=== PATIENT | female | born 1975 ===

== ENCOUNTER 2018-06-13 11:08 | Emergency (ER) | payer OTHER ==
[2018-06-13 11:30] VITALS: RESP 18; O2SAT 100
--- NOTE | 2018-06-13 12:50 | C.PDOC ---
History Of Present Illness 43 year old female presents to ED with complaining of pain to right anterior thigh for the past 2-3 weeks. states patient feels pain when she is standing, sitting, or laying down. states she feels blood is not circulating to that area. Denies fever, chills, taking medication for the pain, weakness, numbness. Time Seen by Provider: 06/13/18 11:31 Chief Complaint (Nursing): Lower Extremity Problem/Injury History Per: Family () History/Exam Limitations: no limitations Onset/Duration Of Symptoms: Days Current Symptoms Are (Timing): Still Present Past Medical History Reviewed: Historical Data, Nursing Documentation, Vital Signs Vital Signs: Last Vital Signs Temp 98.2 F 06/13/18 11:28 Pulse 73 06/13/18 11:28 Resp 18 06/13/18 11:28 BP 106/76 06/13/18 11:28 Pulse Ox 100 06/13/18 11:28 Surgical History: No Surg Hx Family History: States: No Known Family Hx - Social History Hx Tobacco Use: No Hx Alcohol Use: No Hx Substance Use: No - Immunization History Hx Influenza Vaccination: Yes Hx Pneumococcal Vaccination: No Review Of Systems Except As Marked, All Systems Reviewed And Found Negative. Constitutional: Negative for: Fever, Chills Musculoskeletal: Positive for: Leg Pain (Right anterior thigh) Neurological: Negative for: Weakness, Numbness Physical Exam - Physical Exam Appears: Non-toxic, No Acute Distress Skin: Warm, Dry, No Rash Head: Atraumatic, Normacephalic Eye(s): bilateral: PERRL, EOMI Oral Mucosa: Moist Neck: Normal ROM, Supple Chest: Symmetrical, No Deformity Cardiovascular: Rhythm Regular, No Murmur Respiratory: Normal Breath Sounds, No Rales, No Rhonchi, No Wheezing Back: No Vertebral Tenderness, No Paraspinal Tenderness Extremity: Normal ROM, No Tenderness, No Deformity, No Swelling Pulses: Left Dorsalis Pedis: Normal, Right Dorsalis Pedis: Normal Neurological/Psych: Oriented x3 ED Course And Treatment O2 Sat by Pulse Oximetry: 100 (RA) Pulse Ox Interpretation: Normal - Other Rad X-ray right femur X-Ray: Interpreted by Me, Viewed By Me Interpretation: Normal Medical Decision Making Medical Decision Making: Plan: * Ibuprofen * X-ray right femur * Venous duplex scan Venous duplex is negative for DVT and femur xray is negative for fracture and NAD. On re-exam, the patient reports improvement of symptoms. Ambulatory in the ED with steady gait. Follow up with the medical doctor within 1-2 days without fail. Return if worsened. Disposition - Disposition Referrals: Jia Henry MD [Non-Staff] - Disposition: HOME/ ROUTINE Disposition Time: 13:06 Condition: STABLE Additional Instructions: Follow up with the medical doctor within 1-2 days without fail. Return if worsened. Prescriptions: Naproxen [Naprosyn] 500 mg PO BID #20 tab Instructions: Muscle Spasms (DC) Forms: [employer] (Maori) - Clinical Impression Clinical Impression: Muscle cramp, Leg pain - PA / LOOM CLEANER / Resident Statement MD/DO has reviewed & agrees with the documentation as recorded. - Scribe Statement The provider has reviewed the documentation as recorded by the Scribe Jaret Gayleed All medical record entries made by the Scribbhavana were at my direction and personally dictated by me. I have reviewed the chart and agree that the record accurately reflects my personal performance of the history, physical exam, medical decision making, and the department course for this patient. I have also personally directed, reviewed, and agree with the discharge instructions and disposition.
[2018-06-13 13:00] VITALS: BP 108/77; PULSE 74; TEMP 98.3
--- NOTE | 2018-06-13 14:51 | RAD ---
Date of service: 06/13/2018 PROCEDURE: Right Femur Radiographs. HISTORY: pain to the thigh COMPARISON: None. TECHNIQUE: AP and Lateral Radiographs of the right femur. FINDINGS: FEMUR: Normal. No fracture. SOFT TISSUES: Normal. OTHER FINDINGS: Minimal spurring superolateral margin of the right acetabulum mild degenerative osteoarthritis right knee. IMPRESSION: No evidence of acute displaced fracture nor dislocation
--- NOTE | 2018-06-14 19:06 | VASCLAB ---
Date of service: 06/13/2018 PROCEDURE: Right Lower Extremity Venous Duplex Exam. HISTORY: lower leg pain, to thigh PRIORS: None. TECHNIQUE: Right common femoral, femoral, popliteal and posterior tibial, peroneal and great saphenous veins were evaluated. Flow was assessed with color Doppler, compressibility, assessment of phasic flow and augmentation response. Report prepared by WILMAR Stevens, RVT FINDINGS: RIGHT: 1. Common Femoral Vein: 1.1. Compressibility - Fully compressible: Thrombus - None: Flow - Phasic: Augmentation -Normal: Reflux - None. 2. Femoral Vein: 2.1. Compressibility - Fully compressible: Thrombus - None: Flow - Phasic: Augmentation -Normal: Reflux - None. 3. Popliteal Vein: 3.1. Compressibility - Fully compressible: Thrombus - None: Flow - Phasic: Augmentation -Normal: Reflux - None. 4. Posterior Tibial Vein: 4.1. Compressibility - Fully compressible: Thrombus - None: Flow - Phasic: Augmentation -Normal: Reflux - None. 5. Peroneal Vein: 5.1. Compressibility - Fully compressible: Thrombus - None: Flow - Phasic: Augmentation -Normal: Reflux - None. 6. Great Saphenous Vein: 6.1. Compressibility - Fully compressible: Thrombus -None: Flow - Phasic: Augmentation - Normal: Reflux - None. OTHER FINDINGS: IMPRESSION: No evidence of deep or superficial vein thrombosis of the right lower extremity with excellent venous flow. Normal valve function noted of the right side. Normal venous flow noted in the left common femoral vein.
== END 2018-06-13 13:13 | disposition home or self-care (01) ==
LOC: C.ER 11:08
DX: M79.651 Pain in right thigh (principal); R25.2 Cramp and spasm